=== PATIENT | female | born 1975 | race Caucasian/White ===

== ENCOUNTER 2023-08-03 09:07 | Day surgery (SDC) | payer OTHER ==
[~2023-08-03] VITALS: Ht 157.5 cm; Wt 89.0 kg
[2023-08-03 10:05] LABS: HCG,QUAL RESULT NEGATIVE (NEGATIVE)
[2023-08-03] MEDS ORDERED: MEPERIDINE 100 MG INJ. 100 MG/ML VIAL ONE (10:18)
[2023-08-03] MEDS ORDERED: MIDAZOLAM HCL 5 MG/5 ML VIAL ONE (10:18)
[2023-08-03 14:45] VITALS: O2SAT 98
[2023-08-03 18:05] VITALS: BP_SYST 126; PULSE 95; RESP 18
== END 2023-08-03 15:09 | disposition home or self-care (01) ==
LOC: SDS 09:07 → SMU 09:09 → SDS 15:09
PROVIDERS: ATTEND Internal Medicine
DX: R14.0 Abdominal distension (gaseous) (principal); K57.30 Diverticulosis of large intestine without perforation or abscess without bleeding; K64.8 Other hemorrhoids; Z88.1 Allergy status to other antibiotic agents; Z91.013 Allergy to seafood
CPT/HCPCS: 45378; 99152; 84703; 99153; G0378; J2250; J2175